=== PATIENT | male | born 1995 | race Caucasian/White ===

== ENCOUNTER → 2021-08-16 | Outpatient (CLI) | payer SELFPAY ==
[~2021-08-16] MED LIST: CODACE30 PO; RXCODACET PO
[2021-08-18 03:08] LABS: CHLAMYDIA TRACHOMATIS, NAA Negative (Negative)
== END ==
LOC: LAB SHORT 18:18
PROVIDERS: Physician Assistant
DX: R30.0 Dysuria (principal)
CPT/HCPCS: 87086; 87491; 87591

== ENCOUNTER → 2021-11-16 | Outpatient (CLI) | payer SELFPAY | END | disposition home or self-care (01) | LOC: LAB SHORT 17:00 → LAB 17:00 | DX: R30.0 Dysuria (principal) | CPT/HCPCS: 87086 ==

== ENCOUNTER → 2022-09-12 | Outpatient (CLI) | payer OTHER | LOC: LAB 16:35 → LAB SHORT 16:35 | DX: R30.0 Dysuria (principal) | CPT/HCPCS: 87086 ==